=== PATIENT | female | born 1990 | race Asian ===

== ENCOUNTER 2018-05-29 20:52 | Inpatient (IN) | payer BC ==
[2018-05-29] MEDS ORDERED: Lidocaine 2.5%/Prilocain 2.5%* 5 GM TUBE ONE (21:42)
[2018-05-29 22:49] LABS: Hematocrit 37 % (35-47); Hemoglobin 12.5 g/dl (12.0-16.0); Mean Corpuscular HGB Conc 34 g/dl (31-36); Mean Corpuscular Hemoglobin 29 pg (27-31); Mean Corpuscular Volume 87 fL (80-97); Mean Platelet Volume 8.1 fL (7.4-10.4); Platelet Count 230 10^3/ul (150-450); Red Blood Count 4.32 10^6/ul (4.00-5.40); Red Cell Distribution Width 14 % (10.5-15); White Blood Count 8.9 10^3/ul (3.5-10.8)
[2018-05-29] MEDS ORDERED: Sodium Citrate/Citric Acid* 15 ML UDC PO ONE (22:59)
[2018-05-29] MEDS ORDERED: ceFOXitin 2 GM IVPREMIX* 2 GM/50 ML BAG IVPB ONE (22:59)
--- NOTE | 2018-05-29 23:13 | HP ---
General Information - Reason for Visit Patient is a 27 y/o with a at 38 5/7 weeks EGA. She presents to with complaints of ruptured membranes since 3 am, clear fluid and contractions. complicated by gestational diabetes A1, fetus in 90th % ile growth and maternal desire for section. - General Information Maternal Age: 27 Grav: 1 Para: 0 SAB: 0 IEA: 0 Estimated Due Date: 06/07/18 Determined By: LMP Gestational Age in Weeks/Days: 38 6/7 weeks Maternal Blood Type and Rh: A Positive - Results this Serology/RPR Result: Non-Reactive Rubella Result: Immune HBsAg Result: Negative HIV Result: Negative GBS Culture Result: Negative Past Medical History Delivery History: See Records Pertinent Past Medical History: See Records Past Medical History Comment: None Pertinent Past Surgical History: See Records Past Surgical History Comment: None Pertinent Family History: See Records - Antepartal Records Antepartal Records: Reviewed, Complicated by: - Gestational diabetes, fetus large for dates 90th percentile Review of Systems Constitutional: Comfortable CV Complaint: No Respiratory: Shortness of Breath: No Gastrointestinal: No Nausea/Vomiting, Normal Bowel Movement Genitourinary: Leaking Fluid, No Bleeding Musculoskeletal: No Complaint, No Epigastric Pain Neurological: No Headache, No Visual Changes Movement: Normal Exam Allergies/Adverse Reactions: Allergies No Known Allergies Allergy (Verified 05/29/18 21:48) Temp 98.2 BP 120/78 P77 RR 16 POx 99% RA Lab Values - Entire Visit: Laboratory Tests 05/29/18 05/29/18 05/29/18 21:11 21:38 22:17 WBC 8.9 RBC 4.32 Hgb 12.5 Hct 37 MCV 87 MCH 29 MCHC 34 RDW 14 Plt Count 230 MPV 8.1 POC Glucose (mg/dL) 85 Vag Amniotic Fld Detect Positive Blood Type 05/29/18 22:17 WBC RBC Hgb Hct MCV MCH MCHC RDW Plt Count MPV POC Glucose (mg/dL) Vag Amniotic Fld Detect Blood Type A Positive - Measurements Height: 5 ft 5 in Weight: 140 lb Weight in lbs: 140.484235 Body Mass Index (BMI): 23.3 Pre- Weight: 115 lb Weight Gained This : 25 lbs and 0 ozs - Exam Breast: Breast Exam Deferred CVA: No CVA Tenderness Extremities: No Edema Heart: Normal Rhythm/Heart Sounds HEENT: No Significant Findings Lungs: Clear Bilaterally Rectal: Rectal Exam Deferred Reflexes: DTR 2+ Thyroid: No Thyromegaly - Abdominal Exam Abdomen Exam: Non-Tender, Fundal Height Consistent with Dates - Ultrasound/Biophysical Profile Ultrasound Status: Not Done Targeted Exam Findings See L&D Outpatient Visit Provider Note for Findings: N/A Estimated Weight: 8lbs, 14 oz Presenting Part: Vertex Membrane Status: SROM Amniotic Fluid Evaluation: Positive ROM Plus Bleeding/Discharge: None - Patient unable to tolerate pelvic exam, extremely anxious with reaction to exam out of proprotion to discomfort. EFM Findings - External Monitor Findings Baseline Heart Rate: 140 External Monitor Findings: Accelerations Present Contractions: Irregular, < 45 Seconds Assessment/Plan - Assessment 38 weeks, SROM. Patient had a full meal at 8pm, her and fetus are stable, plan for post 8hrs after meal. - Obstetrical Risk Factors Obstetrical Risk Factors: Gestational Diabetes - Plan Plan: IV Hydration, Antibiotic Prophylaxis, C/S Delivery - Date/Time of Admission Date of Admission: 05/29/18 Time of Admission: 23:30
[2018-05-29] MEDS ORDERED: Nalbuphine* 10 MG/ML 1 ML VIAL IV PRN (23:26)
[2018-05-29] MEDS ORDERED: Promethazine INJ(RESTRICTED)* 25 MG/ML 1 ML VIAL IV PRN (23:27)
[2018-05-30] MEDS ORDERED: Morphine PF AMP (0.5MG/ML)* 5 MG/10 ML AMP ONE (07:36)
[2018-05-30] MEDS ORDERED: KETAMINE HCL* 50 MG/ML 10 ML VIAL ONE (07:36)
[2018-05-30] MEDS ORDERED: Midazolam* 1 MG/ML 5 ML VIAL (5 MG) ONE (07:36)
[2018-05-30] MEDS ORDERED: fentaNYL* 50 MCG/ML 2 ML VIAL (100 MCG VIAL) ONE (07:36)
[2018-05-30] MEDS ORDERED: DiMENhydriNATE IV* 50 MG/ML VIAL IV PUSH PRN (07:48)
[2018-05-30] MEDS ORDERED: Naloxone* 0.4 MG/ML 1 ML VIAL IV PRN ×2 (07:48→07:49)
[2018-05-30] MEDS ORDERED: fentaNYL* 50 MCG/ML 2 ML VIAL (100 MCG VIAL) IV PRN (07:48)
[2018-05-30] MEDS ORDERED: diPHENhydraMINE IV* 50 MG/ML 1 ml VIAL (BENADRYL) IV PRN (07:49)
[2018-05-30] MEDS ORDERED: Naloxone* 2 MG in NS 0.9% 250 ML* 250 ML IV PRN (07:49)
[2018-05-30] MEDS ORDERED: Ondansetron INJ* 2 MG/ML VIAL IV PRN (07:49)
[2018-05-30] MEDS ORDERED: Nalbuphine* 10 MG/ML 1 ML VIAL IV PRN (07:49)
[2018-05-30] MEDS ORDERED: Scopolamine 1.5 mg* PATCH TRANSDERM PRN (07:49)
[2018-05-30] MEDS ORDERED: oxyCODONE/Acetamin 5/325 MG* TAB PO PRN (07:49)
[2018-05-30] MEDS ORDERED: PROCHLORPERAZINE INJ 5 MG/ML 2 ML VIAL IV PRN (07:49)
[2018-05-30] MEDS ORDERED: Ketorolac INJ* 30 MG/ML 1 ML VIAL ONE (08:44)
[2018-05-30] MEDS ORDERED: OXYTOCIN* 10 UNITS/ML 1 ML VIAL ONE (08:44)
[2018-05-30] MEDS ORDERED: Ondansetron INJ* 2 MG/ML VIAL ONE (08:44)
[2018-05-30] MEDS ORDERED: EPHEDrine (Pressors)* 50 MG/ML VIAL ONE (08:44)
[2018-05-30] MEDS ORDERED: Dexamethasone IV* 4 MG/ML 1 ML (4 MG) ONE (08:44)
[2018-05-30] MEDS ORDERED: Lidocaine 2% PF * 5 ML VIAL ONE (08:45)
[2018-05-30] MEDS ORDERED: Bupivacaine-MPF SPINAL* 7.5 MG/ML - 2ML AMP ONE (08:45)
[2018-05-30] MEDS ORDERED: Scopolamine 1.5 mg* PATCH ONE (08:45)
[2018-05-30] MEDS ORDERED: Phenylephrine INJ* 10 MG/ML 1 ML VIAL (10 MG) ONE (08:45)
[2018-05-30] MEDS ORDERED: Dibucaine 1% 28.35 GM TUBE PR PRN (08:59)
[2018-05-30] MEDS ORDERED: Zolpidem TAB* 5 MG PO PRN (08:59)
[2018-05-30] MEDS ORDERED: Acetaminophen TAB* 325 MG PO PRN (08:59)
[2018-05-30] MEDS ORDERED: Witch Hazel PAD* JAR TOPICAL PRN (08:59)
[2018-05-30] MEDS ORDERED: Glycerin ADULT SUPP PR PRN (08:59)
[2018-05-30] MEDS: Docusate CAP* 100 MG PO SCH ×3 (12:09→20:53)
[2018-05-30] MEDS: Simethicone TAB* 80 MG TAB.CHEW PO SCH ×3 (14:57→20:53)
[2018-05-30] MEDS: Ketorolac INJ* 30 MG/ML 1 ML VIAL IV PRN (17:46)
[2018-05-31] MEDS ORDERED: oxyCODONE/Acetamin 5/325 MG* TAB PO PRN
[2018-05-31] MEDS: Ketorolac INJ* 30 MG/ML 1 ML VIAL IV PRN (02:17)
[2018-05-31 06:42] LABS: ABS Basophils 0.1 10^3/ul (0-0.2); ABS Eosinophils 0 10^3/ul (0-0.6); ABS Lymphocytes 3.1 10^3/ul (1.0-4.8); ABS Monocytes 1.1 10^3/ul (0-0.8); ABS Neutrophils 10.2 10^3/ul (1.5-7.7); ABS Nucleated RBC 0 10^3/ul; Eosinophil % 0.3 % (0-6); Hematocrit 28 % (35-47); Hemoglobin 9.4 g/dl (12.0-16.0); Lymphocyte % 21.1 % (25-47); Mean Corpuscular HGB Conc 34 g/dl (31-36); Mean Corpuscular Hemoglobin 29 pg (27-31); Mean Corpuscular Volume 86 fL (80-97); Mean Platelet Volume 7.9 fL (7.4-10.4); Nucleated Red Blood Cells % 0; Platelet Count 166 10^3/ul (150-450); Red Blood Count 3.22 10^6/ul (4.00-5.40); Red Cell Distribution Width 14 % (10.5-15); White Blood Count 14.6 10^3/ul (3.5-10.8)
[2018-05-31] MEDS: Ibuprofen TAB* 600 MG PO PRN ×3 (09:17→21:30)
[2018-05-31] MEDS: Docusate CAP* 100 MG PO SCH ×3 (09:18→19:40)
[2018-05-31] MEDS: Ferrous Gluconate TAB* 324 MG TAB PO SCH ×2 (09:18→19:39)
[2018-05-31] MEDS: Simethicone TAB* 80 MG TAB.CHEW PO SCH ×3 (09:18→19:39)
[2018-05-31] MEDS: oxyCODONE/Acetamin 5/325 MG* TAB PO PRN ×2 (12:03→21:30)
[2018-06-01] MEDS: Ibuprofen TAB* 600 MG PO PRN ×4 (03:53→23:21)
[2018-06-01] MEDS: oxyCODONE/Acetamin 5/325 MG* TAB PO PRN ×4 (03:53→23:21)
[2018-06-01] MEDS: Docusate CAP* 100 MG PO SCH ×3 (10:55→20:29)
[2018-06-01] MEDS: Simethicone TAB* 80 MG TAB.CHEW PO SCH ×4 (10:55→20:29)
[2018-06-01] MEDS: Ferrous Gluconate TAB* 324 MG TAB PO SCH ×2 (10:56→20:29)
[2018-06-01 21:07] VITALS: BP 109/74
[2018-06-02] MEDS: oxyCODONE/Acetamin 5/325 MG* TAB PO PRN ×2 (05:24→09:28)
[2018-06-02] MEDS: Ibuprofen TAB* 600 MG PO PRN ×2 (05:25→11:40)
[2018-06-02] MEDS ORDERED: Scopolamine PATCH Remove* 1 NOTE MISC PATCH OFF PRN (07:49)
[2018-06-02] MEDS: Docusate CAP* 100 MG PO SCH (09:14)
[2018-06-02] MEDS: Simethicone TAB* 80 MG TAB.CHEW PO SCH (09:14)
[2018-06-02] MEDS: Ferrous Gluconate TAB* 324 MG TAB PO SCH (09:14)
--- NOTE | 2018-06-03 00:34 | OP ---
DATE OF OPERATION: 05/30/18 - ROOM #104 DATE OF : 89 SURGEON: Aleks Barr MD PLASTICS FACTORY WORKER: Dr. Florian. ANESTHESIA: Spinal. PRE-OP DIAGNOSIS: at 38-6/7 weeks, estimated gestational age, gestational diabetes, and fetus large for date and maternal desire for a section. POST-OP DIAGNOSIS: at 38-6/7 weeks, estimated gestational age, gestational diabetes, and fetus large for date and maternal desire for a section. OPERATIVE PROCEDURE: Primary low-transverse section. ESTIMATED BLOOD LOSS: 400 cc. IV FLUIDS: She received 1200 cc of IV crystalloid fluid. URINE OUTPUT: 100 cc of clear urine. SPECIMENS: Sent to Pathology was cord blood. FINDINGS: Delivery of a viable male infant over light meconium fluid, weighing 7 pounds and 5 ounces, with Apgars of 9 and 9. The placenta was grossly intact with a 3-vessel cord noted. The uterus, adnexa, bowel and bladder were all within normal limits and there were no complications. DESCRIPTION OF PROCEDURE: The patient was taken to the operating room where she was identified. She was placed on the operating table where a spinal anesthetic was obtained without difficulty. She was then placed in the supine position with a leftward tilt, prepped and draped in the normal sterile fashion. A Pfannenstiel skin incision was made with a knife and carried through to the underlying layer of fascia. The fascia was then nicked in the midline and extended laterally with curved Slaughter scissors. The fascia was then grasped superiorly and inferiorly with Jose clamps and dissected off sharply from the rectus muscle. The rectus muscle was in the midline bluntly. The peritoneum was identified, grasped with pickups, and entered sharply with Metzenbaum scissors, and extended superiorly and inferiorly sharply. A bladder blade was inserted into the patient's abdomen and a bladder flap was created using Metzenbaum's scissors over which the bladder blade was then reinserted. A low transverse uterine incision was made with the knife, extended laterally with bandage scissors. Amniotic sac was ruptured. Fluid was noted to be meconium stained. The infant's head was then grasped and delivered atraumatically. The nose and mouth were suctioned. The cord was clamped and cut and the was handed off to the waiting pulp house supervisor. Cord bloods were obtained. The placenta was removed manually. The uterus was then exteriorized, cleared of all clots and debris using moist laparotomy sponges. The uterine incision was then closed using 0 Polysorb suture in a running locked fashion with a second imbricating layer of 0 Polysorb suture with good hemostasis noted. The uterus was then returned to the patient's abdomen. The gutters were then cleared of all clot and debris using saline irrigation and moist laparotomy sponges. All the irrigation fluid was removed as well as the sponge and instruments from the patient's abdomen. The peritoneum was then closed using 3-0 Polysorb suture in a running fashion. The fascia was closed using 0 Polysorb suture in a running fashion and the skin was closed with a 4-0 Monocryl subcuticular stitch. The patient tolerated the procedure well. Sponge, lap, and needle counts were correct x2. She was then transferred to the recovery room area in stable condition. [id number]/CPS #: [id number] [place]
== END 2018-06-02 12:35 | disposition home or self-care (01) | DRG 540 ==
LOC: MCHOBOUT 20:52 → MCHOB 21:42
PROVIDERS: ADMIT Obstetrics & Gynecology; ATTEND Obstetrics & Gynecology
PROC: 4A1HXCZ Monitoring of Products of Conception, Cardiac Rate, External Approach (ICD-10-PCS; 2018-05-30)
PROC: 10D00Z1 Extraction of Products of Conception, Low, Open Approach (ICD-10-PCS; principal; 2018-05-30 07:51)
DX: O36.63X0 Maternal care for excessive fetal growth, third trimester, not applicable or unspecified (principal); O24.420 Gestational diabetes mellitus in childbirth, diet controlled; O69.81X0 Labor and delivery complicated by cord around neck, without compression, not applicable or unspecified; O90.81 Anemia of the puerperium; O77.0 Labor and delivery complicated by meconium in amniotic fluid; Z3A.38 38 weeks gestation of pregnancy; Z37.0 Single live birth
CPT/HCPCS: 36415; 84112; 85025; 85027; 86850; 86900; 86901; A9270-GY; J0694; J1100; J1885; J2250; J2405; J2590; J3010